=== PATIENT | female | born 1950 | race Caucasian/White ===

== ENCOUNTER → 2016-12-29 | Outpatient (REF) | payer MEDICARE, BC ==
[~2016-12-29] MED LIST: ACET30TAB PO; ASPI81TA45 PO; ASPI81TA85 PO; AVEL1TAB PO; BENA25TA4 PO; CEFD1CAP8 PO; CO Q100C10 PO; CO Q200C PO; CREO6000 PO; CURCPOW XX; DIFL200T PO; HEPA10IN19 IV; LANO1TAB23 PO; LIPI20TA PO; LISI10TA4 PO; METF500T4 PO; METO25TAB PO; MOBI15TA PO; MOBI7.5T10 PO; MYLI40DR PO; NEXI40CA PO; PROT1TAB2 PO; SERT25TA PO; SYNT100T PO; TOPR100T PO; TOPR50TA PO; TURM500C3 PO; TYLE650T30 PO; VASO10TA8 PO; VITMTA PO; XANA0.25 PO; ZOLO25TA PO
== END ==
LOC: M LAB REF 15:02
PROVIDERS: ATTEND Ophthalmology
DX: B35.9 Dermatophytosis, unspecified (principal)

== ENCOUNTER → 2017-01-16 | Outpatient (REF) | payer MEDICARE, BC ==
[~2017-01-16] MED LIST changes: -AVEL1TAB PO; +AVEL1TAB3 PO; -CO Q200C PO; +CO Q200C10 PO; +MOBI4TAB PO; -MOBI7.5T10 PO
== END ==
LOC: M LAB REF 15:00
PROVIDERS: ATTEND Internal Medicine
DX: Z01.89 Encounter for other specified special examinations (principal)

== ENCOUNTER → 2017-03-23 | Outpatient (REF) | payer MEDICARE, BC ==
[2017-03-23 16:22] LABS: BASO # 0.1 K/mm3 (0.0-0.2); BASO % 0.9 % (0.0-1.0); EOS # 0.2 K/mm3 (0.0-0.50); EOS % 2.5 % (0.0-3.0); LARGE UNSTAINED CELL # 0.1 K/mm3 (0.0-0.4); LYMPH # 1.6 K/mm3 (1.5-4.5); LYMPH % 22.2 % (24.0-44.0); MEAN CORPUSCULAR HEMOGLOBIN 28.3 pg (27.0-33.0); MEAN CORPUSCULAR HGB CONC 32.8 g/dl (32.0-36.5); MEAN CORPUSCULAR VOLUME 86.5 fl (80.0-96.0); MONO # 0.3 K/mm3 (0.0-0.8); MONO % 4.7 % (0.0-5.0); NEUTROPHILS # 4.7 K/mm3 (1.8-7.7); NEUTROPHILS % 68.8 % (36.0-66.0); PLATELET COUNT, AUTOMATED 193 k/mm3 (150-450); RED CELL DISTRIBUTION WIDTH 14.6 % (11.5-14.5); WHITE BLOOD COUNT 6.8 K/mm3 (4.0-10.0)
[2017-03-23 16:46] LABS: URIC ACID 5.9 MG/DL (2.6-6.0)
[2017-03-23 18:39] LABS: ERYTHROCYTE SEDIMENTATION RATE 31 mm/hr (0-30)
[2017-03-26 00:07] LABS: Lyme Disease IgG/IgM Antibodie <0.91 ISR (0.00-0.90); Lyme Disease IgM Ab Quantitati <0.80 index (0.00-0.79)
== END ==
LOC: M LABDRAW1 15:32
PROVIDERS: ATTEND Orthopaedic Surgery
DX: Z96.652 Presence of left artificial knee joint (principal)

== ENCOUNTER → 2017-04-06 | Outpatient (CLI) | payer BC, MEDICARE ==
--- NOTE | 2017-04-06 13:41 | REP ---
TRIPLE PHASE BONE SCAN OF THE KNEES: Following the intravenous administration of 21.7 millicuries technetium 99, MDP, patient's knees are imaged in the flow phase in the anterior and posterior projections. There is increased blood flow to the region of the right knee. Immediate blood pool and 2.5-hour delayed images are performed of the knees in the anterior, posterior and both lateral projections. Photopenic area in the right knee joint is compatible with metallic prosthesis. There is increased blood pooling and increased delayed activity in the osseous structures adjacent to the femoral and tibial prosthetic components. I cannot exclude loosening or infection. There appears to be mild arthritic uptake in the left knee joint. Signed by Avinash Driver MD 04/07/2017 05:13 P
== END ==
LOC: M RAD 07:48
PROVIDERS: ATTEND Orthopaedic Surgery
DX: Z96.651 Presence of right artificial knee joint (principal)
CPT/HCPCS: 78315; A9503

== ENCOUNTER → 2017-04-10 | Outpatient (REF) | payer MEDICARE | LOC: M LAB REF 13:05 | PROVIDERS: ATTEND Orthopaedic Surgery | DX: M25.561 Pain in right knee (principal) ==

== ENCOUNTER → 2019-03-15 | Outpatient (REF) | payer MEDICARE ==
[~2019-03-15] MED LIST changes: +ACET-716 PO; -ACET30TAB PO; -LANO1TAB23 PO; +LANO62.5 PO; +METF-791 PO; -METF500T4 PO; +METO1TAB63 PO; -METO25TAB PO; -SERT25TA PO; +SERT25TA85 PO
[2019-03-18 00:07] LABS: Lyme Disease IgG/IgM Antibodie <0.91 ISR (0.00-0.90); Lyme Disease IgM Ab Quantitati <0.80 index (0.00-0.79)
== END ==
LOC: M LAB REF 16:45
PROVIDERS: ATTEND Internal Medicine
DX: M25.50 Pain in unspecified joint (principal)

== ENCOUNTER → 2020-01-18 | Outpatient (REF) | payer MEDICARE ==
[~2020-01-18] MED LIST changes: -ASPI81TA85 PO; +ASPI81TA86 PO; -METF-791 PO; +METF-838 PO
== END ==
LOC: M LAB REF 16:30
PROVIDERS: ATTEND Internal Medicine
DX: I12.9 Hypertensive chronic kidney disease with stage 1 through stage 4 chronic kidney disease, or unspecified chronic kidney disease (principal); N18.9 Chronic kidney disease, unspecified; Z13.89 Encounter for screening for other disorder

== ENCOUNTER → 2020-04-05 | Outpatient (REF) | payer MEDICARE, BC | LOC: M LAB REF 17:05 | PROVIDERS: ATTEND Nurse Practitioner Adult Health | DX: M86.8X6 Other osteomyelitis, lower leg (principal) ==

== ENCOUNTER → 2020-12-12 | Outpatient (CLI) | payer MEDICARE, BC ==
[~2020-12-12] MED LIST changes: +LISI10TA22 PO; -LISI10TA4 PO
--- NOTE | 2020-12-12 14:08 | REP ---
INDICATION: RIGHT RIB PAIN. COMPARISON: None TECHNIQUE: Four views of the right ribs FINDINGS: There is no evidence of an acute fracture or destructive osseous lesion. IMPRESSION: No evidence of an acute abnormality <Electronically signed by Claude Truong > 12/12/20 [id number]
== END ==
LOC: M WUC 13:45
PROVIDERS: ATTEND Internal Medicine
DX: R07.81 Pleurodynia (principal)

== ENCOUNTER → 2021-02-15 | Outpatient (REF) | payer MEDICARE, BC | LOC: M LAB REF 16:46 | PROVIDERS: ATTEND Internal Medicine | DX: T84.59XD Infection and inflammatory reaction due to other internal joint prosthesis, subsequent encounter (principal) ==

== ENCOUNTER → 2021-04-04 | Outpatient (CLI) | payer MEDICARE ==
--- NOTE | 2021-04-04 10:01 | DEXAMM ---
INDICATION: DISORDER OF BONE/M85.80. COMPARISON: December 22, 2018. TECHNIQUE: Bone density was measured using dual-energy x-ray absorptionmetry (DEXA). FINDINGS: AP SPINE L1-L4 BMD 1.549 g/cm2 Young Adult T-Score 2.9 Age Matched Z-Score 4.5. LT FEMUR, TOTAL BMD 0.971 g/cm2 Young Adult T-Score -0.3 Age Matched Z-Score 1.2. LT NECK BMD 0.840 g/cm2 Young Adult T-Score -1.4 Age Matched Z-Score 0.3. RT FEMUR, TOTAL BMD 0.867 g/cm2 Young Adult T-Score -1.1 Age Matched Z-Score 0.4. RT NECK BMD 0.787 g/cm2 Young Adult T-Score -1.8 Age Matched Z-Score -0.1. IMPRESSION: There is normal bone density of the spine. There is low bone density of the left hip. There is low bone density of the right hip. The density of the spine has increased 36.2% since the initial exam on June 12, 2005. The density of the spine increased 3.5% since most recent exam on December 22, 2018. The density of the left hip has decreased 4.9% since initial exam on June 12, 2005. The density of the left hip has increased 0.4% since most recent exam on December 22, 2018. The density of the right hip has decreased 3.1% since the initial exam on December 15, 2016. The density of the right hip has decreased 3.3% since the most recent exam on December 22, 2018. FOLLOW-UP: Recommendation for the next bone density exam: 2-5 years. <Electronically signed by Manish Mccoy > 04/04/21 [id number]
--- NOTE | 2021-04-04 16:56 | REP ---
INDICATION: DORINDA SCR MAMMO/Z12.31. COMPARISON: Multiple prior screening examinations, the most recent, 03/06/2020. Left breast ultrasound, 03/21/2020. TECHNIQUE: Digital screening (2D) mammography was performed bilaterally in the CC and MLO projections. Additionally, breast tomosynthesis (3D mammography) was performed bilaterally in the CC and MLO projections. FINDINGS: The patient is a 70-year-old with a family history of endometrial cancer and breast cancer in 2 sisters and breast cancer in a maternal aunt. Patient has had a biopsy of the right breast. The patient has no breast complaints at this time. The Volpara volumetric breast density pattern is b, there are scattered areas of fibroglandular density. There is a biopsy clip in the right breast. In the middle 3rd of the left breast directly deep to and above the nipple at the 12 o'clock position, there is an oval, circumscribed, isodense mass measuring 1.9 cm in diameter (was 1.7 cm). There are no suspicious calcifications, new dominant masses, areas of architectural distortion or developing asymmetry is in either breast. IMPRESSION: BIRADS/ACR : Category 2: Benign finding. This patient's Tyrer-Cuzick lifetime breast cancer risk assessment score is 12.1%. This mammogram was interpreted with the aid of an FDA-approved computer-aided detection system. The patient states she had a clinical breast exam in November 2020. The patient letter being requested is M2. RECOMMENDATION: Repeat screening mammography recommended 1 year (for women over 40). <Electronically signed by Jacob Montero > 04/04/21 [id number]
== END ==
LOC: M WHC 08:40
PROVIDERS: ATTEND Internal Medicine
DX: Z12.31 Encounter for screening mammogram for malignant neoplasm of breast (principal); M85.851 Other specified disorders of bone density and structure, right thigh; M85.852 Other specified disorders of bone density and structure, left thigh

== ENCOUNTER → 2022-01-03 | Outpatient (CLI) | payer MEDICARE ==
[~2022-01-03] MED LIST changes: -CEFD1CAP8 PO; +CEFD300C41 PO
== END ==
LOC: M WUC 11:57
PROVIDERS: ATTEND Internal Medicine Rheumatology
DX: M25.50 Pain in unspecified joint (principal); H04.123 Dry eye syndrome of bilateral lacrimal glands; I73.00 Raynaud's syndrome without gangrene

== ENCOUNTER 2022-03-03 10:59 | Inpatient (IN) | payer MEDICARE ==
[~2022-03-03] VITALS: Ht 160 cm; Wt 72.3 kg
[2022-03-03] MEDS ORDERED: CALC1CAP42 (11:28)
[2022-03-03] MEDS ORDERED: FAMO1TAB11 PO (11:28)
[2022-03-03] MEDS ORDERED: BAYE81TA10 PO (11:28)
[2022-03-03] MEDS ORDERED: GLIM4TAB5 PO (11:28)
[2022-03-03] MEDS ORDERED: MELO7.5T35 PO (11:28)
[2022-03-03] MEDS ORDERED: LOSA50TA28 PO (11:28)
[2022-03-03 12:12] LABS: BASO # 0.1 10^3/uL (0.0-0.2); BASO % 0.5 % (0.0-1.0); EOS # 0.1 10^3/uL (0.0-0.5); LYMPH # 1.3 10^3/uL (1.5-5.0); LYMPH % 11.5 % (24.0-44.0); MEAN CORPUSCULAR HGB CONC 32.6 g/dl (32.0-36.5); MEAN CORPUSCULAR VOLUME 88.9 fl (80.0-96.0); MONO # 0.6 10^3/uL (0.0-0.8); MONO % 4.9 % (2.0-8.0); NEUTROPHILS # 9.3 10^3/uL (1.5-8.5); NEUTROPHILS % 81.7 % (36.0-66.0); PLATELET COUNT, AUTOMATED 210 10^3/uL (150-450); WHITE BLOOD COUNT 11.3 10^3/uL (4.0-10.0)
[2022-03-03 12:26] LABS: HEMOGLOBIN 18.8 g/dl (12.0-15.5); RED BLOOD COUNT 6.49 10^6/uL (4.00-5.40)
[2022-03-03 12:27] LABS: HEMATOCRIT 57.7 % (36.0-47.0)
[2022-03-03 12:52] LABS: ALBUMIN 4.4 GM/DL (3.2-5.2); BILIRUBIN,DIRECT 0.4 MG/DL (0.0-0.2); BILIRUBIN,TOTAL 1.4 MG/DL (0.2-1.0); CALCIUM LEVEL 10.5 MG/DL (8.8-10.2); CREATININE FOR GFR 1.16 MG/DL (0.55-1.30); POTASSIUM SERUM 4.5 MEQ/L (3.5-5.1); TOTAL PROTEIN 8.2 GM/DL (6.4-8.2)
[2022-03-03] MEDS ORDERED: ONDANSETRON 4MG 2ML VIAL IV ONE (14:40)
[2022-03-03] MEDS ORDERED: NS 1,000 ML IV ONE (14:40)
[2022-03-03] MEDS ORDERED: ISOVUE-370 76% 100ML VIAL As Ordered ONE (15:21)
[2022-03-03 16:38] LABS: RSV AMPLIFICATION NEGATIVE (NEGATIVE)
[2022-03-03] MEDS ORDERED: MORPHINE 2 MG/ML 1ML VIAL IV SCH (17:55)
[2022-03-03] MEDS ORDERED: LR 1,000 ML IV ONE (17:55)
[2022-03-03] MEDS: LR 1,000 ML IV SCH (17:55)
[2022-03-03] MEDS ORDERED: hydrALAZINE 20MG/ML 1ML VIAL (J0360 PER 20MG) IV PRN (18:00)
[2022-03-03] MEDS ORDERED: DEXTROSE 50% 50 ML SYRINGE IV PRN (18:05)
[2022-03-03] MEDS ORDERED: GLUCAGON INJ 1MG VIAL SC PRN (18:05)
[2022-03-03] MEDS ORDERED: GLUCOSE 4GM CHEW TABLET PO PRN (18:05)
[2022-03-03] MEDS: ONDANSETRON 4MG 2ML VIAL IV PRN ×2 (18:12→21:52)
[2022-03-03] MEDS: INSULIN LISPRO (NovoLOG) PER UNIT SC SCH ×2 (18:51→23:56)
[2022-03-03 20:00] VITALS: BP 146/93
[2022-03-03] MEDS ORDERED: MORPHINE 2 MG/ML 1ML VIAL IV PRN (23:50)
[2022-03-04] VITALS: BP 180/106
[2022-03-04] MEDS: LR 1,000 ML IV SCH ×3 (01:12→21:24)
[2022-03-04] MEDS: ONDANSETRON 4MG 2ML VIAL IV PRN ×2 (01:17→05:21)
[2022-03-04 04:00] VITALS: BP 176/90
[2022-03-04] MEDS: INSULIN LISPRO (NovoLOG) PER UNIT SC SCH ×4 (05:41→23:26)
[2022-03-04 06:39] LABS: HEMATOCRIT 53.3 % (36.0-47.0); HEMOGLOBIN 17.6 g/dl (12.0-15.5); PLATELET COUNT, AUTOMATED 196 10^3/uL (150-450); RED BLOOD COUNT 6.06 10^6/uL (4.00-5.40); WHITE BLOOD COUNT 8.1 10^3/uL (4.0-10.0)
[2022-03-04 07:14] LABS: ALBUMIN 3.9 GM/DL (3.2-5.2); BILIRUBIN,TOTAL 1.2 MG/DL (0.2-1.0); CALCIUM LEVEL 9.8 MG/DL (8.8-10.2); GLOMERULAR FILTRATION RATE 58.2 (>39); POTASSIUM SERUM 3.7 MEQ/L (3.5-5.1); TOTAL PROTEIN 7.5 GM/DL (6.4-8.2)
[2022-03-04 08:00] VITALS: BP 159/83
[2022-03-04] MEDS ORDERED: MORPHINE 2 MG/ML 1ML VIAL IV PRN (10:35)
[2022-03-04 12:00] VITALS: BP 150/80
[2022-03-04 16:00] VITALS: BP 159/84
[2022-03-04] MEDS ORDERED: SYNT112T2 PO (16:35)
[2022-03-04] MEDS ORDERED: SERT50TA29 PO (16:35)
[2022-03-04] MEDS ORDERED: GLUC500C37 PO (16:35)
[2022-03-04] MEDS ORDERED: CALC-190 PO (16:35)
[2022-03-04] MEDS ORDERED: VITA500C24 PO (16:35)
[2022-03-04] MEDS ORDERED: JARD1TAB PO (16:47)
[2022-03-04] MEDS ORDERED: METF-838 PO (16:47)
[2022-03-04] MEDS ORDERED: HOME MED LIST COMPLETE! XX SCH (16:50)
[2022-03-04 20:00] VITALS: BP 147/82
[2022-03-05] VITALS: BP 144/71
[2022-03-05 04:00] VITALS: BP 157/83
[2022-03-05] MEDS: INSULIN LISPRO (NovoLOG) PER UNIT SC SCH ×2 (06:00→18:16)
[2022-03-05] MEDS: LR 1,000 ML IV SCH (07:28)
[2022-03-05 08:07] LABS: BASO % 0.5 % (0.0-1.0); EOS # 0.2 10^3/uL (0.0-0.5); EOS % 2.6 % (0.0-3.0); HEMATOCRIT 53.2 % (36.0-47.0); HEMOGLOBIN 17.3 g/dl (12.0-15.5); LYMPH # 1.5 10^3/uL (1.5-5.0); MEAN CORPUSCULAR HEMOGLOBIN 29.6 pg (27.0-33.0); MEAN CORPUSCULAR HGB CONC 32.5 g/dl (32.0-36.5); MEAN CORPUSCULAR VOLUME 90.9 fl (80.0-96.0); MONO # 0.5 10^3/uL (0.0-0.8); MONO % 7.9 % (2.0-8.0); NEUTROPHILS # 3.9 10^3/uL (1.5-8.5); NEUTROPHILS % 64.2 % (36.0-66.0); PLATELET COUNT, AUTOMATED 160 10^3/uL (150-450); RED BLOOD COUNT 5.85 10^6/uL (4.00-5.40); WHITE BLOOD COUNT 6.1 10^3/uL (4.0-10.0)
[2022-03-05 08:38] LABS: ALBUMIN 3.5 GM/DL (3.2-5.2); ALT/SGPT 18 U/L (12-78); BILIRUBIN,TOTAL 1.4 MG/DL (0.2-1.0); BLOOD UREA NITROGEN 26 MG/DL (7-18); CALCIUM LEVEL 9.7 MG/DL (8.8-10.2); CARBON DIOXIDE LEVEL 32 MEQ/L (21-32); CHLORIDE LEVEL 96 MEQ/L (98-107); CREATININE FOR GFR 0.85 MG/DL (0.55-1.30); GLOMERULAR FILTRATION RATE > 60.0 (>39); GLUCOSE, FASTING 124 MG/DL (70-100); MAGNESIUM LEVEL 1.9 MG/DL (1.8-2.4); POTASSIUM SERUM 3.4 MEQ/L (3.5-5.1); SODIUM LEVEL 139 MEQ/L (136-145); TOTAL PROTEIN 6.6 GM/DL (6.4-8.2)
[2022-03-05 08:41] VITALS: BP 162/92
[2022-03-05] MEDS ORDERED: LEVOTHYROXINE 100MCG (0.1MG) 5ML SDV PF (SOLUTION FORM) IV SCH (09:00)
[2022-03-05] MEDS: ASCORBIC ACID 500 MG TAB PO SCH (09:00)
[2022-03-05] MEDS: ASPIRIN 81MG ENTERIC TABLET PO SCH (09:00)
[2022-03-05] MEDS ORDERED: SERTRALINE HCL 25 MG TABLET PO SCH ×4 (09:00→21:00)
[2022-03-05] MEDS: LOSARTAN 50MG TABLET PO SCH (14:04)
[2022-03-05] MEDS ORDERED: KCL 10MEQ/100ML SWI (KRUN) 10 MEQ in IV 1 EA IV ONE (14:15)
[2022-03-05] MEDS ORDERED: ACETAMINOPHEN TAB 650MG DOSE (2X325MG) PO PRN (15:40)
[2022-03-05 16:00] VITALS: BP 167/89
[2022-03-05] MEDS ORDERED: POTASSIUM CHLORIDE 10MEQ SR TABLET PO ONE ×2 (16:00→16:10)
[2022-03-05 20:00] VITALS: BP 141/82
[2022-03-05] MEDS: FAMOTIDINE 20 MG TAB PO SCH (20:09)
[2022-03-05] MEDS ORDERED: ATORVASTATIN 20 MG TAB PO SCH (21:00)
[2022-03-05] MEDS ORDERED: INSULIN LISPRO (NovoLOG) PER UNIT SC SCH (21:00)
[2022-03-06 00:29] VITALS: BP 134/63
[2022-03-06 04:10] VITALS: BP 123/80
[2022-03-06] MEDS ORDERED: LEVOTHYROXINE 112MCG TABLET (0.112MG) PO SCH (06:00)
[2022-03-06 07:23] LABS: BASO % 0.7 % (0.0-1.0); EOS # 0.2 10^3/uL (0.0-0.5); EOS % 3.1 % (0.0-3.0); HEMATOCRIT 49.1 % (36.0-47.0); LYMPH # 1.8 10^3/uL (1.5-5.0); LYMPH % 29.3 % (24.0-44.0); MEAN CORPUSCULAR HGB CONC 32.6 g/dl (32.0-36.5); MEAN CORPUSCULAR VOLUME 89.1 fl (80.0-96.0); MONO # 0.5 10^3/uL (0.0-0.8); MONO % 7.4 % (2.0-8.0); NEUTROPHILS # 3.6 10^3/uL (1.5-8.5); NEUTROPHILS % 59.3 % (36.0-66.0); PLATELET COUNT, AUTOMATED 158 10^3/uL (150-450); RED BLOOD COUNT 5.51 10^6/uL (4.00-5.40); WHITE BLOOD COUNT 6.1 10^3/uL (4.0-10.0)
[2022-03-06 07:56] LABS: BLOOD UREA NITROGEN 22 MG/DL (7-18); CALCIUM LEVEL 8.9 MG/DL (8.8-10.2); CARBON DIOXIDE LEVEL 31 MEQ/L (21-32); CHLORIDE LEVEL 99 MEQ/L (98-107); CREATININE FOR GFR 0.76 MG/DL (0.55-1.30); GLOMERULAR FILTRATION RATE > 60.0 (>39); GLUCOSE, FASTING 183 MG/DL (70-100); POTASSIUM SERUM 3.4 MEQ/L (3.5-5.1); SODIUM LEVEL 137 MEQ/L (136-145)
[2022-03-06 08:00] VITALS: BP 133/75
[2022-03-06 08:40] VITALS: BP 133/73
[2022-03-06] MEDS: LOSARTAN 50MG TABLET PO SCH (08:40)
[2022-03-06] MEDS: ASCORBIC ACID 500 MG TAB PO SCH (08:40)
[2022-03-06] MEDS: ASPIRIN 81MG ENTERIC TABLET PO SCH (08:40)
[2022-03-06] MEDS: FAMOTIDINE 20 MG TAB PO SCH (08:40)
[2022-03-06] MEDS: INSULIN LISPRO (NovoLOG) PER UNIT SC SCH (08:40)
== END 2022-03-06 09:57 | disposition home or self-care (01) | DRG 389 ==
LOC: M ED 10:59 → M ED INP 17:50 → M PCU 19:54
PROVIDERS: ADMIT Internal Medicine; ATTEND Internal Medicine
DX: K56.50 Intestinal adhesions [bands], unspecified as to partial versus complete obstruction (principal); K86.1 Other chronic pancreatitis; K21.9 Gastro-esophageal reflux disease without esophagitis; E78.5 Hyperlipidemia, unspecified; E89.0 Postprocedural hypothyroidism; E11.9 Type 2 diabetes mellitus without complications; I10 Essential (primary) hypertension; I25.10 Atherosclerotic heart disease of native coronary artery without angina pectoris; F32.A Depression, unspecified; K57.30 Diverticulosis of large intestine without perforation or abscess without bleeding; Z88.0 Allergy status to penicillin; Z88.2 Allergy status to sulfonamides; Z88.8 Allergy status to other drugs, medicaments and biological substances; Z79.82 Long term (current) use of aspirin; Z79.899 Other long term (current) drug therapy; F12.90 Cannabis use, unspecified, uncomplicated; Z96.651 Presence of right artificial knee joint; M19.90 Unspecified osteoarthritis, unspecified site; E87.6 Hypokalemia; M51.35 Other intervertebral disc degeneration, thoracolumbar region

== ENCOUNTER → 2022-04-22 | Outpatient (CLI) | payer MEDICARE ==
[~2022-04-22] MED LIST changes: +BAYE81TA10 PO; +CALC-190 PO; +CALC1CAP42; +FAMO1TAB11 PO; +GLIM4TAB5 PO; +GLUC500C37 PO; +JARD1TAB PO; +LOSA50TA28 PO; +MELO7.5T35 PO; +SERT50TA29 PO; +SYNT112T2 PO; +VITA500C24 PO
== END ==
LOC: M WHC 10:03
PROVIDERS: ATTEND Internal Medicine
DX: Z12.31 Encounter for screening mammogram for malignant neoplasm of breast (principal)

== ENCOUNTER → 2023-04-23 | Outpatient (CLI) | payer MEDICARE ==
[~2023-04-23] MED LIST changes: -CEFD300C41 PO; +CEFD300C42 PO
== END ==
LOC: M WHC 08:15
PROVIDERS: ATTEND Internal Medicine
DX: Z12.31 Encounter for screening mammogram for malignant neoplasm of breast (principal)

== ENCOUNTER → 2023-11-23 | Outpatient (CLI) | payer MEDICARE ==
[~2023-11-23] MED LIST changes: +CEFD1CAP9 PO; -CEFD300C42 PO; +ISOVUE-370 76% 100ML VIAL ONE
== END ==
LOC: M PLAIMG 10:13
PROVIDERS: ATTEND Internal Medicine
DX: R91.1 Solitary pulmonary nodule (principal)
CPT/HCPCS: 71260; Q9967

== ENCOUNTER → 2023-12-10 | Outpatient (CLI) | payer MEDICARE ==
[~2023-12-10] MED LIST changes: +APPL300T4 PO; +ASCO1TAB5 PO; -ISOVUE-370 76% 100ML VIAL ONE; +SYNT88TA2 PO; +VITA100093 PO; +[UNRECOGNIZED DRUG - OTHER] PO
[2023-12-10 17:15] LABS: PLATELET COUNT, AUTOMATED 179 10^3/uL (150-450)
[2023-12-10 17:28] LABS: INR 0.94; PARTIAL THROMBOPLASTIN TIME 30.9 SECONDS (24.8-34.2); PROTHROMBIN TIME 12.3 SECONDS (12.5-14.5)
== END ==
LOC: M LABDRWAD 11:25
PROVIDERS: ATTEND Internal Medicine Pulmonary Disease
DX: Z01.812 Encounter for preprocedural laboratory examination (principal); R91.1 Solitary pulmonary nodule

== ENCOUNTER 2023-12-16 08:41 | Day surgery (SDC) | payer MEDICARE ==
[~2023-12-16] VITALS: Ht 160 cm; Wt 72.1 kg
[2023-12-16] MEDS ORDERED: GLUCAGON INJ 1MG VIAL SC PRN (09:25)
[2023-12-16] MEDS ORDERED: DEXTROSE 50% 50ML SYRINGE IV PRN (09:25)
[2023-12-16] MEDS ORDERED: GLUCOSE 4 GM CHEW PO PRN (09:25)
[2023-12-16] MEDS ORDERED: INSULIN LISPRO (NovoLOG) PER UNIT SC PRN (09:25)
[2023-12-16] MEDS ORDERED: ROCURONIUM BROMIDE 50MG/5ML VIAL As Ordered ONE (09:52)
[2023-12-16] MEDS ORDERED: SUGAMMADEX SODIUM 500 MG/5 ML VIAL (BRIDION) As Ordered ONE (09:52)
[2023-12-16] MEDS ORDERED: propofoL 200 MG/20 ML VIAL As Ordered ONE (09:52)
[2023-12-16] MEDS ORDERED: ONDANSETRON 4MG 2ML VIAL As Ordered ONE (09:52)
[2023-12-16] MEDS ORDERED: LIDOCAINE 2% 100MG/5ML SDV (FOR ANES.) As Ordered ONE (09:52)
[2023-12-16] MEDS ORDERED: fentaNYL 100 MCG/2 ML INJECTION As Ordered ONE (09:57)
[2023-12-16] MEDS ORDERED: MIDAZOLAM INJ 2MG/2ML VIAL As Ordered ONE (09:57)
[2023-12-16] MEDS: LR 1,000 ML IV SCH (10:07)
[2023-12-16] MEDS: LIDOCAINE PRES-FREE 2% 10ML AMP INH ONE (10:48)
[2023-12-16] MEDS: ALBUTEROL SULFATE 2.5MG/0.5ML INH NEB SOLN INH ONE (10:48)
[2023-12-16] MEDS ORDERED: ACETAMINOPHEN 1000MG 100ML IV BAG As Ordered ONE (12:20)
[2023-12-16] MEDS: EPINEPHrine 1MG/10ML SYRINGE 1.5IN As Ordered ONE (12:54)
[2023-12-16] MEDS: CETACAINE SPRAY 5GM As Ordered ONE (12:54)
[2023-12-16] MEDS ORDERED: ONDANSETRON 4MG 2ML VIAL IV PRN (13:30)
[2023-12-16] MEDS ORDERED: fentaNYL 100 MCG/2 ML INJECTION IV PRN (13:30)
[2023-12-16 14:05] VITALS: BP 131/65; TEMP 97.8; O2SAT 95
== END 2023-12-16 14:30 | disposition home or self-care (01) ==
LOC: M SDC 08:41
PROVIDERS: ATTEND Internal Medicine Pulmonary Disease
DX: R91.1 Solitary pulmonary nodule (principal); I10 Essential (primary) hypertension; E78.5 Hyperlipidemia, unspecified; E11.9 Type 2 diabetes mellitus without complications; E03.9 Hypothyroidism, unspecified; K57.92 Diverticulitis of intestine, part unspecified, without perforation or abscess without bleeding; F41.9 Anxiety disorder, unspecified; F32.A Depression, unspecified; Z92.3 Personal history of irradiation; Z88.2 Allergy status to sulfonamides; Z88.0 Allergy status to penicillin
CPT/HCPCS: 31625; 31627; 31654; 71045; 76000; 88108; 88173; 88305; 88309; 88313; 93005; C1601; J0131; J0171; J1100; J2250; J2405; J3010; S2900

== ENCOUNTER → 2023-12-28 | Outpatient (CLI) | payer MEDICARE | LOC: M PLARAD 08:53 | PROVIDERS: ATTEND Internal Medicine | DX: R91.1 Solitary pulmonary nodule (principal) | CPT/HCPCS: 78815; A9552 ==

== ENCOUNTER → 2024-04-25 | Outpatient (CLI) | payer MEDICARE | LOC: M WHC 09:19 | PROVIDERS: ATTEND Internal Medicine | DX: Z12.31 Encounter for screening mammogram for malignant neoplasm of breast (principal) ==

== ENCOUNTER → 2024-11-29 | Outpatient (CLI) | payer MEDICARE ==
[~2024-11-29] MED LIST changes: +TURM1CAP7 PO; -TURM500C3 PO
== END ==
LOC: M PLAIMG 12:59
PROVIDERS: ATTEND Nurse Practitioner Family
DX: J43.9 Emphysema, unspecified (principal); R91.8 Other nonspecific abnormal finding of lung field

== ENCOUNTER → 2025-04-27 | Outpatient (CLI) | payer MEDICARE | LOC: M WHC 11:59 | PROVIDERS: ATTEND Internal Medicine | DX: Z12.31 Encounter for screening mammogram for malignant neoplasm of breast (principal) ==